=== PATIENT | female | born 2000 | race Caucasian/White ===

== ENCOUNTER 2019-06-16 11:51 | Emergency (ER) | payer OTHER ==
[~2019-06-16] VITALS: Ht 157.5 cm; Wt 61.5 kg
[2019-06-16] MEDS ORDERED: VALA1TAB5 PO (11:57)
[2019-06-16 12:36] LABS: BASO % 0.4 % (0.0-1.0); EOS # 0.1 10^3/uL (0.0-0.5); EOS % 1.5 % (0.0-3.0); HEMATOCRIT 43.2 % (36.0-47.0); HEMOGLOBIN 14.2 g/dl (12.0-15.5); LYMPH # 3.1 10^3/uL (1.5-5.0); LYMPH % 37.5 % (24.0-44.0); MEAN CORPUSCULAR HEMOGLOBIN 28.7 pg (27.0-33.0); MEAN CORPUSCULAR HGB CONC 32.9 g/dl (32.0-36.5); MEAN CORPUSCULAR VOLUME 87.4 fl (80.0-96.0); MONO # 0.6 10^3/uL (0.0-0.8); MONO % 6.9 % (0.0-5.0); NEUTROPHILS # 4.4 10^3/uL (1.5-8.5); NEUTROPHILS % 53.6 % (36.0-66.0); PLATELET COUNT, AUTOMATED 263 10^3/uL (150-450); RED BLOOD COUNT 4.94 10^6/uL (4.00-5.40); WHITE BLOOD COUNT 8.2 10^3/uL (4.0-10.0)
[2019-06-16] MEDS ORDERED: KETOROLAC 30 MG/ML VIAL (J1885) IV ONE (13:00)
[2019-06-16 13:05] LABS: ALBUMIN 4.1 GM/DL (3.2-5.2); BILIRUBIN,DIRECT 0.1 MG/DL (0.0-0.2); BILIRUBIN,TOTAL 0.3 MG/DL (0.2-1.0); TOTAL PROTEIN 7.6 GM/DL (6.4-8.2)
[2019-06-16 14:20] VITALS: BP 106/62
--- NOTE | 2019-06-16 15:04 | REP ---
CT ABDOMEN AND PELVIS WITHOUT CONTRAST: CT abdomen and pelvis performed without oral or IV contrast. Sagittal and coronal reconstruction images are performed. Visualized lung bases are clear. The liver, spleen, adrenals, pancreas, and kidneys are grossly unremarkable. No renal, ureteral or bladder calculus is seen. There is no evidence of hydroureteronephrosis. There is no abdominal aortic aneurysm. There is no evidence of adenopathy. No free air is seen. There is trace free fluid in the pelvis which is likely physiologic. No bowel wall thickening is seen. The appendix is normal. No pelvic mass is seen. IMPRESSION: Essentially negative CT abdomen and pelvis without contrast. No renal, ureteral or bladder calculus and no hydroureteronephrosis. No evidence of appendicitis, with a normal appendix visualized. Trace free fluid in the pelvis is likely physiologic. Electronically Signed by Steffen Shen MD 06/16/2019 03:09 P
== END 2019-06-16 14:25 | disposition home or self-care (01) ==
LOC: M ED 11:51
DX: R79.89 Other specified abnormal findings of blood chemistry (principal); R10.9 Unspecified abdominal pain; R11.0 Nausea; B02.9 Zoster without complications; Z79.899 Other long term (current) drug therapy; F17.210 Nicotine dependence, cigarettes, uncomplicated
CPT/HCPCS: 36415; 74176; 80047; 80076; 81001; 82977; 83690; 84702; 85025; 85379; 87086; 96374; 99284; J1885

== ENCOUNTER 2019-08-11 06:11 | Day surgery (SDC) | payer OTHER ==
[~2019-08-11] VITALS: Ht 157.5 cm; Wt 63.4 kg
[~2019-08-11 06:11] MED LIST: VALA1TAB5 PO
[2019-08-11] MEDS ORDERED: LIDOCAINE 1% SDV 30ML VIAL As Ordered ONE (06:45)
[2019-08-11] MEDS ORDERED: dexameTHASONE 4 MG/ML 1ML VIAL (J1100 PER 1MG) As Ordered ONE (06:45)
[2019-08-11] MEDS ORDERED: BUPIVACAINE HCL 0.5% 30 ML VIAL As Ordered ONE (06:45)
[2019-08-11] MEDS ORDERED: propofoL 200 MG/20 ML VIAL As Ordered ONE ×2 (06:58→08:12)
[2019-08-11] MEDS ORDERED: MIDAZOLAM INJ 2MG/2ML VIAL (J2250 PER 1MG) As Ordered ONE (06:58)
[2019-08-11] MEDS ORDERED: LIDOCAINE 2% 100MG/5ML SDV (FOR ANES.) As Ordered ONE (06:58)
[2019-08-11] MEDS ORDERED: fentaNYL 100 MCG/2 ML INJECTION (J3010) As Ordered ONE (06:58)
[2019-08-11] MEDS ORDERED: ONDANSETRON 4MG/2ML VIAL As Ordered ONE (06:59)
[2019-08-11] MEDS ORDERED: LR 1,000 ML IV ONE (07:00)
[2019-08-11] MEDS ORDERED: ceFAZolin SOD 2 GM in IV 1 EA IV ONE (07:00)
[2019-08-11] MEDS ORDERED: ACETAMINOPHEN 1000MG 100ML IV BTL (OFIRMEV) (J0131 PER 10MG) As Ordered ONE (07:54)
[2019-08-11 09:10] VITALS: BP 116/78
[2019-08-11] MEDS ORDERED: PERCOCET 5MG/325MG TAB PO PRN (09:15)
[2019-08-11] MEDS ORDERED: fentaNYL 100 MCG/2 ML INJECTION (J3010) IV PRN (09:15)
[2019-08-11] MEDS ORDERED: METOCLOPRAMIDE INJ 10MG/2ML VIAL (J2765 PER 1) IV PRN (09:15)
[2019-08-11] MEDS ORDERED: LR 1,000 ML IV SCH (09:15)
[2019-08-11] MEDS ORDERED: ONDANSETRON 4MG/2ML VIAL IV PRN (09:15)
== END 2019-08-11 09:50 | disposition home or self-care (01) ==
LOC: M SDC 06:11
PROVIDERS: ATTEND Podiatrist Foot & Ankle Surgery
DX: T84.84XA Pain due to internal orthopedic prosthetic devices, implants and grafts, initial encounter (principal); K21.9 Gastro-esophageal reflux disease without esophagitis; E28.2 Polycystic ovarian syndrome; F17.218 Nicotine dependence, cigarettes, with other nicotine-induced disorders; F12.10 Cannabis abuse, uncomplicated
CPT/HCPCS: 20680; 81025; J0131; J0690; J1100; J2250; J2405; J3010

== ENCOUNTER 2019-11-29 16:53 | Emergency (ER) | payer OTHER ==
[~2019-11-29] VITALS: Ht 157.5 cm; Wt 62.5 kg
[2019-11-29] MEDS ORDERED: METF500T13 (17:00)
[2019-11-29] MEDS ORDERED: CLOM50TA9 (17:00)
[2019-11-29] MEDS ORDERED: MEDR10TA (17:00)
[2019-11-29 17:57] LABS: APPEARANCE, URINE CLOUDY (CLEAR); BACTERIA, URINE AUTO 1+ (NEGATIVE); BILIRUBIN, URINE AUTO NEGATIVE (NEGATIVE); BLOOD, URINE BLOOD NEGATIVE (NEGATIVE); COLOR, URINE YELLOW (YELLOW); GLUCOSE, URINE (UA) AUTO NEGATIVE (NEGATIVE); KETONE, URINE AUTO NEGATIVE (NEGATIVE); LEUKOCYTE ESTERASE, URINE AUTO 3+ (NEGATIVE); NITRITE, URINE AUTO NEGATIVE (NEGATIVE); PROTEIN, URINE AUTO NEGATIVE (NEGATIVE); RBC, URINE AUTO 4 /HPF (0-3); SPECIFIC GRAVITY URINE AUTO 1.017 (1.002-1.035); SQUAMOUS EPITHELIAL CELL UR AU 6 /HPF (0-6); UROBILINOGEN, URINE AUTO 0.2 mg/dL (0.0-2.0); WBC, URINE AUTO 16 /HPF (0-3)
[2019-11-29 17:58] LABS: HEMATOCRIT 41.6 % (36.0-47.0); HEMOGLOBIN 14.2 g/dl (12.0-15.5); MEAN CORPUSCULAR HEMOGLOBIN 30.3 pg (27.0-33.0); MEAN CORPUSCULAR HGB CONC 34.1 g/dl (32.0-36.5); MEAN CORPUSCULAR VOLUME 88.7 fl (80.0-96.0); PLATELET COUNT, AUTOMATED 292 10^3/uL (150-450); RED BLOOD COUNT 4.69 10^6/uL (4.00-5.40); WHITE BLOOD COUNT 9.3 10^3/uL (4.0-10.0)
--- NOTE | 2019-11-29 20:14 | REPVR ---
PROCEDURE INFORMATION: Exam: US , Transvaginal Exam date and time: 11/29/2019 7:51 PM Age: 19 years old Clinical indication: complicated by abdominal or pelvic pain; Lower; First trimester; Gestational age or lmp: 10/20/19; ; Additional info: Cramping TECHNIQUE: Imaging protocol: Real-time transvaginal obstetrical ultrasound of the maternal pelvis and a first trimester with image documentation. Transvaginal imaging was used for better evaluation of the fetus and adnexa. COMPARISON: No relevant prior studies available. FINDINGS: Gestation: Small fluid collection with echogenic rind demonstrated in the uterus demonstrated with an average sac diameter of 2.7 mm. No pole demonstrated at this time. BIOMETRY: Gestational age (AUA): Gestational age based on sac diameter is 4 weeks 5 days in this patient who would be 5 weeks 5 days based on LMP of 10/20/2019. However decidual reaction associated with an ectopic not excluded. MATERNAL: Uterus: Uterus measures 9.1 x 4.5 x 5.7 cm. Endometrial echo complex measures 1.5 cm. Right and left adnexa: Corpus luteal cyst right ovary. Left ovary unremarkable. IMPRESSION: Gestational age based on sac diameter is 4 weeks 5 days in this patient who would be 5 weeks 5 days based on LMP of 10/20/2019. However decidual reaction associated with an ectopic not excluded. Continued interval follow-up suggested in order to document the presence of a pole cardiac activity and to exclude ectopic . Electronically signed by: Pj Powers On 11/29/2019 20:13:58 PM
[2019-11-29 20:43] VITALS: BP 119/65
== END 2019-11-29 20:59 | disposition home or self-care (01) ==
LOC: M ED 16:53
DX: O99.89 Other specified diseases and conditions complicating pregnancy, childbirth and the puerperium (principal); R10.2 Pelvic and perineal pain; O99.281 Endocrine, nutritional and metabolic diseases complicating pregnancy, first trimester; E28.2 Polycystic ovarian syndrome; Z3A.01 Less than 8 weeks gestation of pregnancy; Z79.84 Long term (current) use of oral hypoglycemic drugs; Z79.899 Other long term (current) drug therapy; Z87.891 Personal history of nicotine dependence

== ENCOUNTER → 2019-12-02 | Outpatient (CLI) | payer OTHER ==
[~2019-12-02] MED LIST changes: +CLOM50TA9; +MEDR10TA; +METF500T13
== END ==
LOC: M LAB 10:09
PROVIDERS: ATTEND Physician Assistant
DX: O26.899 Other specified pregnancy related conditions, unspecified trimester (principal); R25.2 Cramp and spasm; Z3A.00 Weeks of gestation of pregnancy not specified

== ENCOUNTER 2020-06-15 21:35 | Outpatient (CLI) | payer OTHER ==
[~2020-06-15] VITALS: Ht 157.5 cm; Wt 72.8 kg
[2020-06-15 21:47] VITALS: BP 106/66
[2020-06-15 22:35] VITALS: BP 100/60
[2020-06-15] MEDS ORDERED: CYCLOBENZAPRINE 5MG TABLET PO ONE (22:40)
--- NOTE | 2020-06-15 22:51 | IPNPDOC ---
Text Note Date of Service The patient was seen on 06/15/20. NOTE S: Naye is a 20yo at 34+1wks gestation who presents to L&D for c/o upper back pain, 6/10, x2 days, that has not been relieved with stretching or baths. She denies trying other interventions such as increasing hydration or tylenol. She states she also has had some upper abdominal cramping and some new discomfort with voiding. She denies abnormal discharge, odor, burning. She r eports +FM, denies LOF/VB/CTX. Pt's complicated by history of depression, anxiety, PPD and hx of drug abuse (stopped previous ). O: VSS, afebrile FHR 130s, moderate variability, + accels, no decels noted CTX by TOCO: none Abdomen soft, no pain with palpation No pain elicited with palpation on back; pt points to upper back for pain, not worsened with palpation VE and SSE not warranted UA/UC collected, 2+ leuks, 1+ bacteria, +WBC; UC pending A/P: 20yo at 34+1wks, Category I FHT/Reactive Pt provided 5mg flexeril here; pain reduced to 1/10 Pt hydrated PO Will treat for UTI - 1st dose of 100mg macrobid started here; will write for remainder of medication to be picked up at [facility] tomorrow Will write Rx for pyridium to be picked up at [facility] Reviewed comfort measures for pain Discharged home f/u in clinic [id number] or sooner PRN Vital Signs Date Time Temp Pulse Resp B/P (MAP) Pulse Ox O2 Delivery O2 Flow Rate FiO2 06/15/20 22:35 80 100/60 (73) 06/15/20 22:35 97.2 18 06/15/20 21:49 97.9 18 06/15/20 21:47 66 106/66 (79) Laboratory Tests 06/15/20 21:53: Urine Color YELLOW, Urine Appearance CLOUDYH, Urine pH 7.0, Urine Specific Blaine 1.023, Urine Protein 1+H, Urine Glucose (UA) NEGATIVE, Urine Ketones NEGATIVE, Urine Blood NEGATIVE, Urine Nitrite NEGATIVE, Urine Bilirubin NEGATIVE, Urine Urobilinogen 0.2, Urine Leukocyte Esterase 2+H, Urine WBC (Auto) 32H, Urine RBC (Auto) 1, Urine Hyaline Casts (Auto) 0, Urine Bacteria (Auto) 1+H, Urine Squamous Epithelial Cells 9, Urine Mucus (Auto) SMALL, Urine Sperm (Auto) VS,Fishbone, I+O VS, Fishbone, I+O Vital Signs Date Time Temp Pulse Resp B/P (MAP) Pulse Ox O2 Delivery O2 Flow Rate FiO2 06/15/20 22:35 80 100/60 (73) 06/15/20 22:35 97.2 18 LYNDON SMALL CNM Jun 15, 2020 22:51
[2020-06-15] MEDS ORDERED: NITROFURANTOIN (MACROBID) 100 MG CAP PO ONE (23:05)
== END 2020-06-15 23:34 | disposition home or self-care (01) ==
LOC: M LDO 21:35
PROVIDERS: ATTEND Registered Nurse Maternal Newborn
DX: O23.43 Unspecified infection of urinary tract in pregnancy, third trimester (principal); Z3A.34 34 weeks gestation of pregnancy
CPT/HCPCS: 59025; 81001; 87086; G0378; G0463

== ENCOUNTER 2020-07-23 07:17 | Inpatient (IN) | payer OTHER ==
[~2020-07-23] VITALS: Ht 157.5 cm; Wt 74.9 kg
[2020-07-23] VITALS (40 sets, daily range): BP systolic 92–139; BP diastolic 54–88
[2020-07-23] MEDS ORDERED: PRENTAB9 PO (07:30)
[2020-07-23] MEDS ORDERED: ACET-897 PO (07:30)
[2020-07-23] MEDS ORDERED: TUMS750C5 PO (07:31)
[2020-07-23] MEDS ORDERED: ACYC1CAP20 PO (07:42)
[2020-07-23 08:23] LABS: HEMATOCRIT 33.6 % (36.0-47.0); HEMOGLOBIN 11.3 g/dl (12.0-15.5); MEAN CORPUSCULAR HEMOGLOBIN 29.3 pg (27.0-33.0); MEAN CORPUSCULAR HGB CONC 33.6 g/dl (32.0-36.5); PLATELET COUNT, AUTOMATED 161 10^3/uL (150-450); RED BLOOD COUNT 3.86 10^6/uL (4.00-5.40); WHITE BLOOD COUNT 10.9 10^3/uL (4.0-10.0)
[2020-07-23] MEDS ORDERED: OXYTOCIN DRIP 30 UNITS in IV 1 EA IV PRN (08:55)
[2020-07-23] MEDS ORDERED: LIDOCAINE 1% MDV 20ML VIAL INFIL PRN (08:55)
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
[2020-07-23] MEDS: miSOPROStol 50MCG 1/2 TABLET PO SCH ×4 (09:34→21:15)
[2020-07-23 09:43] LABS: ALBUMIN 2.7 GM/DL (3.2-5.2); ALT/SGPT 11 U/L (12-78); BILIRUBIN,TOTAL 0.2 MG/DL (0.2-1.0); BLOOD UREA NITROGEN 7 MG/DL (7-18); CALCIUM LEVEL 8.4 MG/DL (8.5-10.1); CARBON DIOXIDE LEVEL 24 MEQ/L (21-32); CHLORIDE LEVEL 109 MEQ/L (98-107); CREATININE FOR GFR 0.54 MG/DL (0.55-1.30); GLOMERULAR FILTRATION RATE > 60.0 (>60); GLUCOSE, FASTING 97 MG/DL (70-100); SODIUM LEVEL 139 MEQ/L (136-145); TOTAL PROTEIN 6.2 GM/DL (6.4-8.2)
[2020-07-23 10:15] LABS: AMPHETAMINES URINE REFLEX NEGATIVE (NEGATIVE); BARBITURATES URINE REFLEX NEGATIVE (NEGATIVE); BENZODIAZEPINES URINE REFLEX NEGATIVE (NEGATIVE); CANNABINOIDS URINE REFLEX NEGATIVE (NEGATIVE); COCAINE METABOLITE URINE REFLE NEGATIVE (NEGATIVE); METHADONE URINE REFLEX NEGATIVE (NEGATIVE); OPIATES URINE REFLEX NEGATIVE (NEGATIVE); PHENCYCLIDINE URINE REFLEX NEGATIVE (NEGATIVE)
[2020-07-23] MEDS: ACETAMINOPHEN 500 MG TAB PO PRN (10:53)
[2020-07-23] MEDS: CALCIUM CARBONATE 500 MG CHEW U/D PO PRN ×2 (11:42→17:38)
[2020-07-23] MEDS ORDERED: BUTORPHANOL 2 MG/ML INJ (J0595) IV PRN (17:35)
[2020-07-23] MEDS ORDERED: PROMETHAZINE INJ 25 MG/ML VIAL (J2550) IV PRN (17:35)
--- NOTE | 2020-07-23 17:35 | IPNPDOC ---
Text Note Date of Service The patient was seen on 07/23/20. NOTE Presented to room for assessment of progress. Cervix: /-3. Hernández bulb with 60ml saline placed intrauterine. FHR Cat I. Ctx becoming more regular. Will add another dose of misoprostol if able to based on contraction pattern. IV analgesia ordered PRN if desired. All questions answered. Niles VS,Get, I+O VS, Get, I+O Laboratory Tests 07/23/20 08:12 Vital Signs Date Time Temp Pulse Resp B/P (MAP) Pulse Ox O2 Delivery O2 Flow Rate FiO2 07/23/20 16:15 97.4 16 07/23/20 15:43 81 134/60 (84) 07/23/20 12:20 99 Room Air ZEYNEP MONTALVO DO July 23, 2020 17:35
[2020-07-23] MEDS: LR 1,000 ML IV SCH (17:53)
[2020-07-23] MEDS ORDERED: OXYTOCIN DRIP 30 UNITS in IV 1 EA IV SCH (20:00)
[2020-07-23] MEDS ORDERED: LR 1,000 ML IV SCH (20:00)
[2020-07-23] MEDS ORDERED: FENTANYL 2MCG/ML ROPIVACAINE 0.2% IN 0.9% NACL 100ML IVBAG As Ordered ONE (20:08)
[2020-07-23] MEDS ORDERED: EPIDURAL/PCA KEYS XX PRN (22:05)
[2020-07-23] MEDS ORDERED: ONDANSETRON 4MG/2ML VIAL IV PRN (22:05)
[2020-07-23] MEDS ORDERED: NALOXONE INJ 0.4MG/1ML VIAL (J2310 PER 1MG) IV PRN (22:05)
[2020-07-23] MEDS ORDERED: diphenhydrAMINE 50MG/ML VIAL (J1200) IV PRN (22:05)
[2020-07-23] MEDS ORDERED: EPIDURAL COMMENT XX SCH (22:05)
[2020-07-23] MEDS ORDERED: LACTATED RINGER'S 1000 ML IV PRN (22:05)
[2020-07-23] MEDS ORDERED: REFRIGERATOR IV KEYS XX PRN (22:05)
[2020-07-23] MEDS: ePHEDrine SULFATE 25 MG/5 ML(5MG/ML) SYRINGE IV PRN ×2 (22:31→22:58)
[2020-07-23] MEDS: FENTANYL/ROPIVACAINE/NACL BAG 100 ML EPIDURAL SCH (22:35)
[2020-07-24] VITALS (23 sets, daily range): BP systolic 101–144; BP diastolic 58–81
[2020-07-24] MEDS: LR 1,000 ML IV SCH (03:02)
[2020-07-24] MEDS: ACETAMINOPHEN 500 MG TAB PO PRN (03:05)
[2020-07-24] MEDS: CALCIUM CARBONATE 500 MG CHEW U/D PO PRN (05:41)
[2020-07-24] MEDS: FENTANYL/ROPIVACAINE/NACL BAG 100 ML EPIDURAL SCH (07:30)
[2020-07-24] MEDS ORDERED: DOCUSATE SODIUM 100MG CAPSULE PO PRN (08:50)
[2020-07-24] MEDS ORDERED: OXYTOCIN DRIP 30 UNITS in IV 1 EA IV SCH (08:50)
[2020-07-24] MEDS ORDERED: DIBUCAINE 1% OINTMENT 30GM TOP PRN (08:50)
[2020-07-24] MEDS ORDERED: MEASLES,MUMPS,RUBELLA VACCINE INJ (MMR-II) (90707) SC SCH (08:50)
[2020-07-24] MEDS ORDERED: METHYLERGONOVINE MALEATE 0.2 MG TAB PO PRN (08:50)
--- NOTE | 2020-07-24 09:05 | DNPDOC ---
[facility] Delivery Note Delivery Note DATE OF DELIVERY: 24Jul2020 PREDELIVERY DIAGNOSIS: 38-3/7 weeks' gestation and IOL for puritis. POST DELIVERY DIAGNOSIS: Delivered. PROCEDURE: Spontaneous vaginal delivery. DISTRICT SALES COORDINATOR: [place] CNM ANESTHESIA: epidural. ESTIMATED BLOOD LOSS: 100 mL. FINDINGS: 7 pound 2 ounce male Moises, Score 9/9, no nuchal cord times, compound left hand. DELIVERY SUMMARY: Patient is a 20-year-old 2 now para 1-0-0-1 who was admitted to labor and delivery for IOL for puritis suspicious for Cholestasis at 38+2 on 23Jul2020. Pt c/o left groin pain and was found to be C/C/+2. Brisk decent was made to in SUSY with left anterior shoulder and a compound left hand followed easily by the posterior shoulder and corpus. The vigorous male was placed immediately skin to skin on the maternal abdomen where he was dried and stimulated. Pitocin infusion was initiated per protocol. The cord was clamped x 2 after pulsation ceased and cut by the FOB. Examination revealed a right periurethral hemostatic abrasion. Mother and baby entered the recovery phase in stable condition, skin to skin. SAV[place]NAH [place] CNM July 24, 2020 09:05
[2020-07-24] MEDS: PRENATAL VITAMINS CHEWABLE TABLET PO SCH (09:40)
[2020-07-24] MEDS: IBUPROFEN 800 MG TAB PO PRN ×2 (09:40→18:02)
[2020-07-24] MEDS: ACETAMINOPHEN TAB 650MG DOSE (2X325MG) PO PRN ×2 (14:23→18:40)
[2020-07-24] MEDS: FAMOTIDINE 20 MG TAB PO SCH (17:39)
[2020-07-25] MEDS: IBUPROFEN 800 MG TAB PO PRN ×2 (03:17→11:59)
[2020-07-25] MEDS: FAMOTIDINE 20 MG TAB PO SCH ×2 (05:33→18:01)
[2020-07-25 06:00] VITALS: BP 141/81
[2020-07-25 06:54] VITALS: BP 128/79
--- NOTE | 2020-07-25 06:54 | IPNPDOC ---
Progress Note Date of Service: July 25, 2020 Day#: 1 Progress Note SUBJECT: Ms. Elizabeth is a 20yo now day 1 after a vaginal deliv graciela complicated by a dk-urethral laceration. She has been ambulating, voiding spontaneously without issue and tolerating regular diet. Breast feeding without issue. Reports lochia is like a normal period. Patient is ambulating well. Reports some cramping with . Denies any pain. Voiding and passing flatus without difficulty. Problems List 1. suspected intrahepatic cholestasis 2. HSV 3. depression, anxiety, history of suicide attempt 4. history of illicit drug use OBJECTIVE: VITAL SIGNS: Within normal limits, afebrile. Alert and oriented times three. No increased WOB Heart rate: non-tachy. Abdomen: Fundus firm at U-2. Soft, NTTP. [Minimal] lochia. ASSESSMENT: Ms. Elizabeth is a 20yo now day 1 after a vaginal delivery complicated by a dk-urethral laceration. Vitals within normal limits (single mild range but repeat normal suspect erroneous), afebrile, hemodynamically stable with no evidence of infection. PLAN: 1. Discharge to home today. 2. Tylenol and Motrin for pain. 3. Encourage breast feeding and ambulation. 4. Desires nexplanon in 6wks for contraception 5. Routine PP visit in 6 weeks in clinic. Also instructed patient to schedule follow up in 2 weeks for close follow up given behavioral health issues. 6. Discussed return precautions at length. VS, I&O, 24H, Fishbone Vital Signs/I&O Vital Signs Date Time Temp Pulse Resp B/P (MAP) Pulse Ox O2 Delivery O2 Flow Rate FiO2 07/25/20 06:00 97.7 76 16 141/81 (101) 98 Room Air I&O- Last 24 Hours up to 6 AM 07/25/20 06:00 Intake Total 4565.1 ml Output Total 1225 ml Balance 3340.1 ml DORETHA CLEMENTE DO July 25, 2020 06:54
--- NOTE | 2020-07-25 06:56 | OBDS ---
[facility] Obstetrical Discharge Sum. Obstetrical Discharge Summary Date: July 25, 2020 A/P, Post Course List any complications Ms. Elizabeth is a 20yo now day 1 after a vaginal delivery complicated by a dk-urethral laceration. 7 pound 2 ounce male infant Moises, Score 9/9, no nuchal cord times, compound left hand. She has been ambulating, voiding spontaneously without issue and tolerating regular diet. Breast feeding without issue. Reports lochia is like a normal period. Patient is ambulating well. Reports some cramping with . Denies any pain. Voiding and passing flatus without difficulty. Vitals within normal limits, afebrile, hemodynamically stable with no evidence of infection. Problems List 1. suspected intrahepatic cholestasis 2. HSV 3. depression, anxiety, history of suicide attempt 4. history of illicit drug use PLAN: 1. Discharge to home today. 2. Tylenol and Motrin for pain. 3. Encourage breast feeding and ambulation. 4. Desires nexplanon in 6wks for contraception 5. Routine PP visit in 6 weeks in clinic. Also instructed patient to schedule follow up in 2 weeks for close follow up given behavioral health issues. 6. Discussed return precautions at length. DORETHA CLEMENTE DO July 25, 2020 06:56
[2020-07-25] MEDS: ACETAMINOPHEN TAB 650MG DOSE (2X325MG) PO PRN ×2 (07:34→15:45)
[2020-07-25] MEDS: PRENATAL VITAMINS CHEWABLE TABLET PO SCH (07:34)
--- NOTE | 2020-07-25 17:49 | IPN ---
PROGRESS NOTE DATE: 07/25/2020 This patient requested circumcision of her male . After discussing risks and benefits of circumcision, the medical and the nonmedical indications, the penile block and aftercare; expressed understanding of penile block, aftercare, and bleeding. Signed the consent form. All questions were answered, 20 minute discussion. We await the clearance by the program advisor.
== END 2020-07-25 18:29 | disposition home or self-care (01) | DRG 807 ==
LOC: M LDI 07:17 → M OBS 07-24 10:40
PROVIDERS: ADMIT Obstetrics & Gynecology; ATTEND Obstetrics & Gynecology
PROC: 3E0P7GC Introduction of Other Therapeutic Substance into Female Reproductive, Via Natural or Artificial Opening (ICD-10-PCS; 2020-07-23)
PROC: 10E0XZZ Delivery of Products of Conception, External Approach (ICD-10-PCS; principal; 2020-07-24)
DX: O99.72 Diseases of the skin and subcutaneous tissue complicating childbirth (principal); Z37.0 Single live birth; L29.9 Pruritus, unspecified; Z3A.38 38 weeks gestation of pregnancy; O64.5XX0 Obstructed labor due to compound presentation, not applicable or unspecified; O71.5 Other obstetric injury to pelvic organs

== ENCOUNTER 2021-03-04 09:09 | Emergency (ER) | payer OTHER ==
[~2021-03-04] VITALS: Ht 157.5 cm; Wt 63.5 kg
[~2021-03-04 09:09] MED LIST changes: +ACET-897 PO; +ACYC1CAP20 PO; +PRENTAB9 PO; +TUMS750C5 PO
[2021-03-04] MEDS ORDERED: IBUP-1114 PO (09:20)
[2021-03-04 09:43] LABS: BASO % 0.3 % (0.0-1.0); EOS # 0.1 10^3/uL (0.0-0.5); EOS % 0.7 % (0.0-3.0); HEMATOCRIT 44.6 % (36.0-47.0); HEMOGLOBIN 14.2 g/dl (12.0-15.5); LYMPH # 2.3 10^3/uL (1.5-5.0); LYMPH % 25.3 % (24.0-44.0); MEAN CORPUSCULAR HEMOGLOBIN 28.5 pg (27.0-33.0); MEAN CORPUSCULAR HGB CONC 31.8 g/dl (32.0-36.5); MEAN CORPUSCULAR VOLUME 89.6 fl (80.0-96.0); MONO # 0.6 10^3/uL (0.0-0.8); MONO % 6.9 % (2.0-8.0); NEUTROPHILS # 6.1 10^3/uL (1.5-8.5); NEUTROPHILS % 66.6 % (36.0-66.0); PLATELET COUNT, AUTOMATED 247 10^3/uL (150-450); RED BLOOD COUNT 4.98 10^6/uL (4.00-5.40); WHITE BLOOD COUNT 9.1 10^3/uL (4.0-10.0)
[2021-03-04] MEDS ORDERED: KETOROLAC 30 MG/ML 1ML VIAL IV ONE (10:00)
[2021-03-04 10:36] LABS: BILIRUBIN,DIRECT 0.1 MG/DL (0.0-0.2); BILIRUBIN,TOTAL 0.3 MG/DL (0.2-1.0); TOTAL PROTEIN 7.1 GM/DL (6.4-8.2)
--- NOTE | 2021-03-04 11:23 | REP ---
INDICATION: RUQ/+Camelia/Epigastirc COMPARISON: None. TECHNIQUE: Real time dietz scale ultrasound examination using curved array transducer. FINDINGS: Liver and pancreas are normal in contour, size, and echogenicity without focal hepatic or pancreatic lesions identified. The gallbladder is normal and without gallstones, wall thickening, or pericholecystic fluid. No biliary ductal dilatation is appreciated and the common bile duct measures 2.6 mm diameter. Right kidney is normal in reniform shape without hydronephrosis and measures 10.7 x 5.3 x 3.5 cm. No ascites in the visualized right upper quadrant. IMPRESSION: Normal limited right upper quadrant ultrasound <Electronically signed by Benedict Lim > 03/04/21 [id number]
[2021-03-04] MEDS ORDERED: OMEP40CA4 PO (12:04)
[2021-03-04] MEDS ORDERED: PANTOPRAZOLE 40MG VIAL (C9113 PER 1) IV ONE (12:05)
[2021-03-04 12:51] VITALS: BP 99/55
== END 2021-03-04 12:55 | disposition home or self-care (01) ==
LOC: M ED 09:09
DX: K29.70 Gastritis, unspecified, without bleeding (principal); R10.11 Right upper quadrant pain; R10.13 Epigastric pain; E28.2 Polycystic ovarian syndrome; F17.200 Nicotine dependence, unspecified, uncomplicated; Z86.19 Personal history of other infectious and parasitic diseases; Z79.899 Other long term (current) drug therapy
CPT/HCPCS: 76705; 80047; 80076; 83690; 84702; 85025; 96374; 96375; 99284; C9113; J1885

== ENCOUNTER 2021-04-04 11:20 | Day surgery (SDC) | payer OTHER ==
[~2021-04-04] VITALS: Ht 157.5 cm; Wt 62.5 kg
[~2021-04-04 11:20] MED LIST changes: +IBUP-1114 PO; +NS 1,000 ML IV ONE; +OMEP40CA4 PO
[2021-04-04] MEDS ORDERED: propofoL 200 MG/20 ML VIAL As Ordered ONE (14:39)
[2021-04-04] MEDS ORDERED: LIDOCAINE 2% 100MG/5ML SDV (FOR ANES.) As Ordered ONE (14:39)
[2021-04-04] MEDS ORDERED: ESMOLOL INJ 100MG/10ML VIAL As Ordered ONE (14:39)
[2021-04-04] MEDS ORDERED: GLYCOPYRROLATE INJ 0.2 MG/ML 2 ML VIAL As Ordered ONE (14:39)
[2021-04-04 15:20] VITALS: BP 116/65
== END 2021-04-04 15:22 | disposition home or self-care (01) ==
LOC: M OPP 11:20
PROVIDERS: ATTEND Internal Medicine Gastroenterology
DX: R10.13 Epigastric pain (principal); K21.00 Gastro-esophageal reflux disease with esophagitis, without bleeding; K31.89 Other diseases of stomach and duodenum; Z79.899 Other long term (current) drug therapy; F17.210 Nicotine dependence, cigarettes, uncomplicated

== ENCOUNTER → 2021-08-14 | Outpatient (REF) | payer OTHER ==
[~2021-08-14] MED LIST changes: -NS 1,000 ML IV ONE
[2021-08-14 16:41] LABS: APPEARANCE, URINE HAZY (CLEAR); BACTERIA, URINE AUTO NEGATIVE (NEGATIVE); BILIRUBIN, URINE AUTO NEGATIVE (NEGATIVE); BLOOD, URINE BLOOD NEGATIVE (NEGATIVE); COLOR, URINE STRAW (YELLOW); GLUCOSE, URINE (UA) AUTO NEGATIVE (NEGATIVE); KETONE, URINE AUTO NEGATIVE (NEGATIVE); LEUKOCYTE ESTERASE, URINE AUTO 3+ (NEGATIVE); NITRITE, URINE AUTO NEGATIVE (NEGATIVE); PROTEIN, URINE AUTO NEGATIVE (NEGATIVE); RBC, URINE AUTO 0 /HPF (0-3); SPECIFIC GRAVITY URINE AUTO 1.013 (1.002-1.035); SQUAMOUS EPITHELIAL CELL UR AU 8 /HPF (0-6); UROBILINOGEN, URINE AUTO 0.2 mg/dL (0.0-2.0); WBC, URINE AUTO 88 /HPF (0-3)
[2021-08-14 18:27] LABS: GC DNA AMPLIFICATION NEGATIVE (NEGATIVE)
== END ==
LOC: M LAB REF 16:11
PROVIDERS: ATTEND Physician Assistant Medical
DX: Z11.3 Encounter for screening for infections with a predominantly sexual mode of transmission (principal)